=== PATIENT | female | born 1940 | race Caucasian/White ===

== ENCOUNTER 2022-08-01 16:01 | Outpatient (CLI) | payer MEDICARE | END 2022-08-01 16:02 | disposition home or self-care (01) | LOC: CSHCP 16:01 | PROVIDERS: ATTEND Nurse Practitioner Family | DX: R06.02 Shortness of breath (principal); R94.2 Abnormal results of pulmonary function studies | CPT/HCPCS: 94010; 94726; 94729; 94760 ==